=== PATIENT | female | born 1950 | race Caucasian/White ===

== ENCOUNTER 2016-10-25 13:40 | Emergency (ER) | payer MEDICARE, BC ==
--- NOTE | 2016-10-25 13:54 | ER Document Report ---
ED Fall - General Stated Complaint: FALL/KNEE PAIN Time Seen by Provider: 10/25/16 13:53 Mode of Arrival: Medic Information source: Patient, Emergency Med Personnel TRAVEL OUTSIDE OF THE [place] IN LAST 30 DAYS: No - HPI Occurred: Just prior to arrival Context: Fell from height - 6-8 FT. UP, ON STEPLADDER Associated symptoms: Difficulty walking, Other - FERGUSON R. BACK & FLANK. denies: Lost consciousness, Dazed/confused, Difficulty breathing, Became dizzy/fainted Location of injury/pain: Back, Knee - RIGHT Quality of pain: Sharp, Throbbing Severity: Severe Prehospital interventions: Other - ICE PACK - Related data Allergies/Adverse Reactions: Iodinated Contrast- Oral and IV Dye [IV Dye, Iodine Containing] Allergy (Mild, Verified 10/25/16 13:59) Past Medical History - General Information source: Patient - Social History Smoking Status: Unknown if Ever Smoked Cigarette use (# per day): No Chew tobacco use (# tins/day): No Frequency of alcohol use: Rare Drug Abuse: None Lives with: Family Family History: Reviewed & Not Pertinent Patient has suicidal ideation: No Patient has homicidal ideation: No - Past Medical History Cardiac Medical History: Reports: None Pulmonary Medical History: Reports: Hx Pneumonia - age 30 Neurological Medical History: Reports: None Endocrine Medical History: Reports: Hx Hypothyroidism Renal/ Medical History: Reports: None Malignancy Medical History: Reports: None GI Medical History: Reports: None Musculoskeltal Medical History: Reports Hx Muscle Spasm Skin Medical History: Reports None Psychiatric Medical History: Reports: Hx Depression Past Surgical History: Reports: Hx Cholecystectomy, Hx Hysterectomy - VAG., Hx Orthopedic Surgery - neck, Hx Tonsillectomy - Immunizations Hx Diphtheria, Pertussis, Tetanus Vaccination: Yes Review of Systems - Review of Systems Constitutional: No symptoms reported EENT: No symptoms reported Cardiovascular: No symptoms reported Respiratory: No symptoms reported Gastrointestinal: No symptoms reported Genitourinary: No symptoms reported Female Genitourinary: Post menopausal Musculoskeletal: See HPI Skin: No symptoms reported Neurological/Psychological: No symptoms reported Physical Exam - Vital signs Vitals: Temp Pulse Resp BP Pulse Ox 99.8 F 90 20 142/79 H 92 10/25/16 13:55 10/25/16 13:55 10/25/16 13:55 10/25/16 13:55 10/25/16 13:55 Interpretation: Hypertensive. No: Tachycardic, Tachypneic - General General appearance: Appears well, Alert In distress: None - HEENT Head: Normocephalic Eyes: Normal Conjunctiva: Normal Ears: Normal Nasal: Normal Mouth/Lips: Normal Mucous membranes: Normal Pharynx: Normal Neck: Normal - Respiratory Respiratory status: No respiratory distress Chest status: Tender - R. 12th RIB Breath sounds: Normal - Cardiovascular Rhythm: Regular Heart sounds: Normal auscultation Murmur: No Pulses: Normal: Dorsalis pedis - EQUAL BILAT. - Abdominal Inspection: Normal Distension: No distension Bowel sounds: Hypoactive Tenderness: Nontender - Back Back: Normal, Tender - R. 12th RIB. No: Vertebra tenderness - Extremities General upper extremity: Normal inspection General lower extremity: No: Normal inspection - R. KNEE (SEE BELOW) Knee: Tender - GENERALIZED, Joint effusion, Other - SWELLING - Neurological Neuro grossly intact: Yes Cognition: Normal Orientation: AAOx4 Notes: R.L.E. SENSATION INTACT DISTAL TO INJURY. - Psychological Associated symptoms: Normal affect, Normal mood - Skin Skin Temperature: Warm Skin Moisture: Dry Skin Color: Normal Skin Turgor: Elastic Course - Vital Signs Vital signs: Temp Pulse Resp BP Pulse Ox 99.8 F 90 20 142/79 H 92 10/25/16 13:55 10/25/16 13:55 10/25/16 13:55 10/25/16 13:55 10/25/16 13:55 - Laboratory Result Diagrams: 10/25/16 14:15 10/25/16 14:15 Laboratory results interpreted by me: 10/25/16 14:15 Est GFR (Non-Af Amer) 55 L Discharge - Discharge Clinical Impression: Fall from ladder Qualifiers: Encounter type: initial encounter Qualified Code(s): W11.XXXA - Fall on and from ladder, initial encounter Tibial plateau fracture, right Qualifiers: Encounter type: initial encounter Fracture type: closed Qualified Code(s): S82.141A - Displaced bicondylar fracture of right tibia, initial encounter for closed fracture Rib fracture Qualifiers: Encounter type: initial encounter Rib fracture type: single rib Fracture type: closed Laterality: right Qualified Code(s): S22.31XA - Fracture of one rib, right side, initial encounter for closed fracture Condition: Stable Disposition: HOME, SELF-CARE Instructions: Fracture (awaiting reduction) ([facility]), Rib Injuries and Fractures ( [facility]), Ice & Elevation ([facility]), Knee Immobilizing Splint ([facility]), Oral Narcotic Medication ([facility]) Additional Instructions: USE CRUTCHES, NO WEIGHT BEARING ON RIGHT LEG. KEEP LEG ELEVATED MUCH POSSIBLE. FOLLOW UP THURSDAY WITH DR. WATSON, CALL OFFICE AFTER 8 AM FOR TIME. RETURN TO E.R. IF PROBLEMS, ANY TIME. Prescriptions: Hydromorphone HCl [Dilaudid 2 Mg Tablet] 2 mg PO Q4HP PRN #12 tablet PRN Reason: For Pain Referrals: HARRY PAINTER MD [ACTIVE STAFF] - Follow up as needed
[2016-10-25 14:23] LABS: ABSOLUTE BASOPHILS # (AUTO) 0.1 10^3/uL (0.0-0.2); ABSOLUTE EOSINOPHILS # (AUTO) 0.3 10^3/uL (0.0-0.6); ABSOLUTE MONOCYTES (AUTO) 0.6 10^3/uL (0.1-1.4); ABSOLUTE NEUT (AUTO) 5.6 10^3/uL (1.7-8.2); BASOPHILS % (AUTO) 0.6 % (0-2); EOSINOPHILS % (AUTO) 3.1 % (0-6); HEMATOCRIT 41.7 % (36.0-47.0); HEMOGLOBIN 13.9 g/dL (12.0-15.5); LYMPHOCYTES % (AUTO) 23.5 % (13-45); MEAN CORPUSCULAR HEMOGLOBIN 28.8 pg (27.0-33.4); MEAN CORPUSCULAR HGB CONC 33.3 g/dL (32.0-36.0); MEAN CORPUSCULAR VOLUME 87 fl (80-97); MONOCYTES % (AUTO) 6.8 % (3-13); RED BLOOD COUNT 4.82 10^6/uL (3.72-5.28); WHITE BLOOD COUNT 8.5 10^3/uL (4.0-10.5)
[2016-10-25] MEDS ORDERED: HYDROMORPHONE HCL INJ/PF 2 MG/ML AMPULE IV ONE (14:32)
[2016-10-25 14:55] LABS: ALANINE AMINOTRANSFERASE 31 U/L (9-52); ALBUMIN 4.5 g/dL (3.5-5.0); ALKALINE PHOSPHATASE 67 U/L (38-126); ANION GAP 12 (5-19); ASPARTATE AMINO TRANSFERASE 25 U/L (14-36); BILIRUBIN,DIRECT 0.3 mg/dL (0.0-0.4); BILIRUBIN,TOTAL 0.5 mg/dL (0.2-1.3); BLOOD UREA NITROGEN 15 mg/dL (7-20); CARBON DIOXIDE 28 mmol/L (22-30); CHLORIDE 103 mmol/L (98-107); GLUCOSE 106 mg/dL (75-110); POTASSIUM 4.9 mmol/L (3.6-5.0); SODIUM 142.8 mmol/L (137-145); TOTAL PROTEIN 7.6 g/dL (6.3-8.2)
--- NOTE | 2016-10-25 15:02 | RADIOLOGY REPORT (SQ) ---
EXAM DESCRIPTION: CT CHEST WITHOUT COMPLETED DATE/TIME: 10/25/2016 2:38 pm REASON FOR STUDY: TRAUMA, PAIN LEFT CHEST FLANK COMPARISON: None. TECHNIQUE: CT scan performed of the chest without intravenous contrast. Images reviewed with lung, soft tissue and bone windows. Reconstructed coronal and sagittal MPR images reviewed. All images st ored on PACS. All CT scanners at this facility use dose modulation, iterative reconstruction, and/or weight based d osing when appropriate to reduce radiation dose to as low as reasonably achievable (ALARA). [facility]: Dose Right [facility]: CareDose [facility]: Dose Right [facility]: Teradose 4D [facility]: [employer] RADIATION DOSE: 9.16 mGy. LIMITATIONS: No technical limitations. FINDINGS: LUNGS AND PLEURA: No masses, infiltrates, pneumothorax. No pleural effusions, calcificati ons. HILAR AND MEDIASTINAL STRUCTURES: No identified masses or abnormal nodes. No obvious aneurysm. HEART AND VASCULAR STRUCTURES: No aneurysm. No pericardial effusion. UPPER ABDOMEN: No significant findings. Limited exam. THYROID AND OTHER SOFT TISSUES: No masses. No adenopathy. BONES: No significant finding. HARDWARE: None in the chest. OTHER: No other significant findings. IMPRESSION: NO SIGNIFICANT FINDING ON NON-CONTRASTED CHEST CT. No identified fractures. TECHNICAL DOCUMENTATION: JOB ID: [id number] Quality ID # [id number]: Final reports with documentation of one or more dose reduction techniques (e.g., Au tomated exposure control, adjustment of the mA and/or kV according to patient size, use of iterative reconstruction technique) 2010 [employer]- All Rights Reserved
--- NOTE | 2016-10-25 15:03 | RADIOLOGY REPORT (SQ) ---
EXAM DESCRIPTION: KNEE RIGHT 2 VIEWS COMPLETED DATE/TIME: 10/25/2016 2:41 pm REASON FOR STUDY: TRAUMA / PAIN COMPARISON: None. NUMBER OF VIEWS: Two views. TECHNIQUE: AP and lateral radiographic images acquired of the right knee. LIMITATIONS: None. FINDINGS: MINERALIZATION: Osteopenia. BONES: Comminuted proximal tibial fracture with intra-articular extension. Fractures through the med ial and lateral tibial plateau is. JOINT: Large joint effusion with fluid fluid level. SOFT TISSUES: No soft tissue swelling. No radio-opaque foreign body. OTHER: No other significant finding. IMPRESSION: Comminuted fractures of the proximal tibia with intra-articular extension. TECHNICAL DOCUMENTATION: JOB ID: [id number] [employer]- All Rights Reserved
--- NOTE | 2016-10-25 15:10 | RADIOLOGY REPORT (SQ) ---
EXAM DESCRIPTION: CT RT LOWER EXTREMITY WITHOUT COMPLETED DATE/TIME: 10/25/2016 2:44 pm REASON FOR STUDY: KNEE TRAUMA COMPARISON: Plain radiograph TECHNIQUE: Axial imaging performed through the right knee with reformatted coronal and sagittal imag ing windowed for bone and soft tissues. Images saved to PACS. 3D IMAGING: Were 3D images as MIP, SSD, or volume rendering performed at the work station? No All CT scanners at this facility use dose modulation, iterative reconstruction, and/or weight based d osing when appropriate to reduce radiation dose to as low as reasonably achievable (ALARA). [facility]: Dose Right [facility]: CareDose [facility]: Dose Right [facility]: Teradose 4D [facility]: [employer] LIMITATIONS: None. RADIATION DOSE: 4.12 mGy. FINDINGS: SOFT TISSUES: Large joint effusion with fat fluid level. BONES: Badly comminuted proximal tibial fracture. There is a vertical oblique fracture from the medi al tibia to the tibial spine. There is depression of the tibial spine and the lateral tibial plateau 6 mm. Comminution. 3 very small intra-articular loose bodies. Lateral subluxation of the lateral tibial plateau with respect to the lateral femur. Patella and femur are intact. MINERALIZATION: Normal. OTHER: No other significant finding. IMPRESSION: Badly comminuted proximal tibial fracture with fractures into the tibial spine and later al tibial plateau. Depression of the tibial spine and lateral tibial plateau 6 mm. 3 very small intra-articular loose bodies. Lateral subluxation of the tibial plateau with respect to the lateral femur. Fat fluid level in the joint. TECHNICAL DOCUMENTATION: JOB ID: [id number] Quality ID # [id number]: Final reports with documentation of one or more dose reduction techniques (e.g., Au tomated exposure control, adjustment of the mA and/or kV according to patient size, use of iterative reconstruction technique) 2010 [employer] All Rights Reserved
[2016-10-25 15:51] VITALS: BP 141/64
== END 2016-10-25 15:49 | disposition home or self-care (01) ==
LOC: ER 13:40
DX: S82.141A Displaced bicondylar fracture of right tibia, initial encounter for closed fracture (principal); S22.31XA Fracture of one rib, right side, initial encounter for closed fracture; M25.561 Pain in right knee; M54.9 Dorsalgia, unspecified; R10.9 Unspecified abdominal pain; W11.XXXA Fall on and from ladder, initial encounter
CPT/HCPCS: 99284; 96374; 36415; 85025; 80053; 73560; 71250; 73700; L1830; J1170

== ENCOUNTER 2016-10-30 16:45 | Inpatient (IN) | payer MEDICARE, BC, OTHER ==
[2016-10-28 12:34] LABS: ABSOLUTE EOSINOPHILS # (AUTO) 0.1 10^3/uL (0.0-0.6); ABSOLUTE LYMPHOCYTES (AUTO) 1.6 10^3/uL (0.5-4.7); ABSOLUTE MONOCYTES (AUTO) 0.8 10^3/uL (0.1-1.4); ABSOLUTE NEUT (AUTO) 7.3 10^3/uL (1.7-8.2); BASOPHILS % (AUTO) 0.3 % (0-2); EOSINOPHILS % (AUTO) 1.5 % (0-6); HEMATOCRIT 39.4 % (36.0-47.0); HGB HCT DIFFERENCE -0.4; LYMPHOCYTES % (AUTO) 16.3 % (13-45); MEAN CORPUSCULAR HEMOGLOBIN 28.9 pg (27.0-33.4); MEAN CORPUSCULAR HGB CONC 33.1 g/dL (32.0-36.0); MEAN CORPUSCULAR VOLUME 87 fl (80-97); MONOCYTES % (AUTO) 8.3 % (3-13); RED BLOOD COUNT 4.51 10^6/uL (3.72-5.28); RED CELL DISTRIBUTION WIDTH 12.8 % (11.5-14.0); SEGMENTED NEUTROPHILS % (AUTO) 73.6 % (42-78); WHITE BLOOD COUNT 9.9 10^3/uL (4.0-10.5)
--- NOTE | 2016-10-28 12:38 | RADIOLOGY REPORT (SQ) ---
EXAM DESCRIPTION: CHEST PA/LATERAL COMPLETED DATE/TIME: 10/28/2016 12:25 pm REASON FOR STUDY: PRE OP COMPARISON: CT chest 10/25/2016 EXAM PARAMETERS: NUMBER OF VIEWS: two views TECHNIQUE: Digital Frontal and Lateral radiographic views of the chest acquired. RADIATION DOSE: NA LIMITATIONS: none FINDINGS: LUNGS AND PLEURA: Mild bibasilar platelike atelectasis. No fluffy alveolar infiltrates worrisome for pulmonary edema or pneumonia. No pleural effusion. No pneumothorax. MEDIASTINUM AND HILAR STRUCTURES: No masses or contour abnormalities. HEART AND VASCULAR STRUCTURES: Heart normal size. No evidence for failure. BONES: No acute findings. HARDWARE: None in the chest. OTHER: Air-fluid levels in stomach and colon under the hemidiaphragms, question ileus IMPRESSION: Bibasilar atelectasis. TECHNICAL DOCUMENTATION: JOB ID: [id number] [employer]- All Rights Reserved
[2016-10-28 13:05] LABS: ANION GAP 10 (5-19); BLOOD UREA NITROGEN 10 mg/dL (7-20); CALCIUM 9.6 mg/dL (8.4-10.2); CARBON DIOXIDE 30 mmol/L (22-30); CHLORIDE 96 mmol/L (98-107); CREATININE RESULT 0.71 mg/dL (0.52-1.25); GLUCOSE 111 mg/dL (75-110); POTASSIUM 4.5 mmol/L (3.6-5.0); SODIUM 135.9 mmol/L (137-145)
--- NOTE | 2016-10-28 23:41 | EKG REPORT ---
SEVERITY:- NORMAL ECG - SINUS RHYTHM : Confirmed by: Mike Bruno 28-Oct-2016 23:40:34
--- NOTE | 2016-10-30 11:53 | RADIOLOGY REPORT (SQ) ---
EXAM DESCRIPTION: CHEST SINGLE VIEW COMPLETED DATE/TIME: 10/30/2016 11:35 am REASON FOR STUDY: REPEAT PRE OP-ASU RM#1 COMPARISON: None. EXAM PARAMETERS: NUMBER OF VIEWS: One view. TECHNIQUE: Single frontal radiographic view of the chest acquired. RADIATION DOSE: NA LIMITATIONS: None. FINDINGS: LUNGS AND PLEURA: Basilar platelike atelectasis/ scarring noted similar to the prior study . No focal infiltrates. No pneumothorax. No significant effusion. MEDIASTINUM AND HILAR STRUCTURES: No masses. Contour normal. HEART AND VASCULAR STRUCTURES: Heart normal in size. Normal vasculature. BONES: No acute findings. HARDWARE: None in the chest. OTHER: No other significant finding. IMPRESSION: Linear bibasilar opacities, similar to prior study pre likely representing scarring or a telectasis. No focal infiltrates or pneumothorax. TECHNICAL DOCUMENTATION: JOB ID: [id number]
[~2016-10-30 16:45] MED LIST: ACETAMINOPHEN 100 ML IV ONE; ALBUTEROL SULFATE 0.083% NEB 2.5 MG/3 ML AMPUL NEB ONE; BUPIVACAINE INJ/PF LIPOSOME/PF 266 MG/20 ML SDV ONE; CEFAZOLIN 2 GM/D5W RTU 2 GM/50 ML RTUPB IV PRN; DEXAMETHASONE SOD PHOSPHATE INJ 4 MG/1 ML VIAL ONE; DIPHENHYDRAMINE HCL 50 MG/ML VIAL IV PRN; FENTANYL CITRATE INJ/PF 100 MCG/2 ML AMPUL IV PRN; FENTANYL CITRATE INJ/PF 250 MCG/5 ML AMPULE ONE; GLYCOPYRROLATE INJ 0.4 MG/2 ML VIAL ONE; HYDROMORPHONE HCL INJ/PF 2 MG/ML AMPULE ONE; IBUPROFEN INJ 800 MG/8 ML VIAL IV ONE; LACTATED RINGERS 1000 ML IV PRN; LIDOCAINE 0.5% INJ-PF (5 MG/ML) 50 ML SDV SUBCUT PRN; LIDOCAINE 2% INJ-PF (20 MG/ML) 10 ML AMPUL ONE; MEPERIDINE HCL/PF INJ 25 MG/1 ML DISP.SYRIN IV PRN; MIDAZOLAM 2 MG/2 ML INJ ONE; MORPHINE SULFATE 10 MG/ML INJ INJ ONE; MORPHINE SULFATE 10 MG/ML INJ IV PRN; MORPHINE SULFATE 10 MG/ML INJ ONE; NEOSTIGMINE METHYLSULFATE 10 MG/10 ML VIAL ONE; ONDANSETRON HCL INJ/PF 4 MG/2 ML SDV ONE; PROMETHAZINE HCL INJ 25 MG/1 ML VIAL IV PRN; PROPOFOL INJ 200 MG/20 ML VIAL IV ONE; RINGERS SOLUTION,LACTATED 1,000 ML IV ONE; RINGERS SOLUTION,LACTATED 1,000 ML IV PRN; SUCCINYLCHOLINE CHLORIDE INJ 200 MG/10 ML VIAL ONE; THROMBIN (BOVINE) 5000 UNIT EPITAXIS KIT ONE; THROMBIN (BOVINE) TOPICAL 20000 UNIT VIAL ONE; VECURONIUM BROMIDE INJ 10 MG VIAL IV ONE
--- NOTE | 2016-10-30 17:04 | RADIOLOGY REPORT (SQ) ---
EXAM DESCRIPTION: TIBIA FIBULA RIGHT; NO CHG FLUORO COMPLETED DATE/TIME: 10/30/2016 4:48 pm REASON FOR STUDY: ORIF RT TIBIAL PLATEAU S82.141A DISPLACED BICONDYLAR FRACTURE OF RIGHT TIBIA, INI T COMPARISON: None. FLUOROSCOPY TIME: 2.2 minutes 8 images saved to PACS. TECHNIQUE: Intra-operative images acquired during surgical procedure to evaluate progress. NUMBER OF IMAGES: 8 LIMITATIONS: None. FINDINGS: 8 spot fluoroscopic images from the row open reduction internal fixation of proximal tibia l fracture. Image demonstrates placement of a lateral plate with multiple screws. No in tibial plat eau fracture is seen but not well defined on these studies. No fracture involving the proximal fibul a also noted. Please see operative report full details regarding procedure. IMPRESSION: IMAGE(S) OBTAINED DURING PROCEDURE. COMMENT: Quality ID 145: Final reports for procedures using fluoroscopy that document radiation exp osure indices, or exposure time and number of fluorographic images (if radiation exposure indices are not available) Please consult full operative report of the attending physician for description of the procedure. TECHNICAL DOCUMENTATION: JOB ID: [id number] [employer]- All Rights Reserved
[2016-10-30] MEDS ORDERED: OXYCODONE-ACETAMINOPHEN 5-325 MG TABLET PO PRN (17:32)
[2016-10-30] MEDS ORDERED: MORPHINE SULFATE 10 MG/ML INJ IV PRN (17:33)
[2016-10-30] MEDS ORDERED: ONDANSETRON HCL INJ/PF 4 MG/2 ML SDV IV PRN ×2 (17:34→21:35)
[2016-10-30] MEDS: FENTANYL CITRATE INJ/PF 100 MCG/2 ML AMPUL ONE ×2 (17:42→17:50)
[2016-10-30] MEDS ORDERED: RINGERS SOLUTION,LACTATED 1,000 ML IV PRN ×2 (18:40→21:35)
[2016-10-30] MEDS ORDERED: MORPHINE SULFATE 10 MG/ML INJ ONE (20:58)
[2016-10-30] MEDS: CEFAZOLIN 2 GM/D5W RTU 2 GM/50 ML RTUPB IV SCH (21:45)
[2016-10-30] MEDS ORDERED: CEFAZOLIN 2 GM/D5W RTU 2 GM/50 ML RTUPB IV SCH (22:00)
[2016-10-30] MEDS: MORPHINE SULFATE 10 MG/ML INJ IV PRN (23:37)
[2016-10-31] MEDS: OXYCODONE-ACETAMINOPHEN 5-325 MG TABLET PO PRN ×4 (01:02→20:58)
[2016-10-31] MEDS: MORPHINE SULFATE 10 MG/ML INJ IV PRN ×3 (03:58→12:36)
[2016-10-31] MEDS: CEFAZOLIN 2 GM/D5W RTU 2 GM/50 ML RTUPB IV SCH (05:08)
[2016-10-31] MEDS ORDERED: NA PHOS,M-B/NA PHOS,DI-BA (ADULT) 133 ML ENEMA PR PRN (09:20)
[2016-10-31] MEDS: DOCUSATE SODIUM 100 MG CAPSULE PO SCH ×2 (09:41→17:31)
[2016-10-31] MEDS: LEVOTHYROXINE SODIUM 0.112 MG TABLET PO SCH (09:41)
[2016-10-31] MEDS: KETOROLAC TROMETHAMINE INJ/PF 30 MG/1 ML SDV IV SCH ×2 (09:42→17:31)
[2016-10-31] MEDS: SENNOSIDES/DOCUSATE 8.6-50 MG 1 EACH TABLET PO SCH (09:42)
[2016-10-31] MEDS: POLYETHYLENE GLYCOL 3350 POWDER 17 GM/1 PACKET PO SCH (09:43)
[2016-10-31] MEDS: RIVAROXABAN 10 MG TABLET PO SCH (09:43)
[2016-10-31] MEDS ORDERED: RIVAROXABAN 10 MG TABLET PO SCH (10:00)
--- NOTE | 2016-10-31 13:41 | Operative Report ---
Operative Report DATE OF SURGERY: 10/30/16 PREOPERATIVE DIAGNOSIS: Right bicondylar tibial plateau fracture POSTOPERATIVE DIAGNOSIS: Same OPERATION: ORIF of right tibial plateau SURGEON: HARRY TILLEY ANESTHESIA: GA TISSUE REMOVED OR ALTERED: None COMPLICATIONS: None ESTIMATED BLOOD LOSS: 50 mL INTRAOPERATIVE FINDINGS: As above PROCEDURE: 2 g of Ancef were given to the patient in the preoperative holding area. Patient was brought to the operating room where she was successfully induced and intubated in supine position. A bump was placed under her right buttocks. Thigh tourniquet was applied to the right lower extremity. Right lower extremity was prepped and draped in a normal sterile surgical fashion. Timeout was done identifying the right knee as the correct site. Esmarch was used to exsanguinate the extremity and tourniquet was inflated at 300 mmHg. Erie was placed on the knee in a hockey stick incision was done to expose the lateral plateau. The tibialis anterior was then reflected off of the tibial shaft and lateral tibial plateau. I can identify the nondisplaced fracture of the lateral plateau. I was not able to visualize the joint very well from a lateral incision so a medial incision was done. Dissection was taken down to the MCL and then a longitudinal split of MCL was done exposing the medial meniscus. I was unable to visualize the joint space but was able to visualize the posterior medial fragment which I was able to reduce successfully with a ball hook and then periarticular clamps. C-arm pictures were taken confirming reduction and therefore placed a couple pins to hold it in place provisionally. I noted on the lateral side I had to do a window that allowed me to use a bone tamp to prop up the depressed portion of the joint. With the new defect ended up using Hydrocet from [employer] for feeling of the metaphyseal gap. I applied the lateral plate and placed my pins across bicondylar fracture. I also secured the plate distally with a cortical screw in the shaft. My first screw proximally in the condyles was placed in a compression fashion. The other 2 were placed in a locking fashion. I placed to kickstand and then filled in the final remaining holes in the shaft. C-arm pictures was used to guide my drill and check my length. Also satisfied with the reduction and fixation I proceeded to close bilateral wound reapproximating the tibialis anterior and fascial tissue over the plate. I used 0 Vicryl and 2-0 Vicryl to close the subcutaneous tissue and dermis. [place] for skin. Tourniquet was let down at 131 minutes and on the medial side I had a small active issues from a vein therefore had to pack the wound. After packing for 5 minutes and applying FloSeal there was no active bleeding. I reapproximated the MCL side-to -side stitches using Vicryl. I approximated the subcutaneous tissue with 0 Vicryl and 2-0 Vicryl for the dermis. Lita was used for the skin. Xeroform 4 x 4 dressing was applied to the extremity I covered it with ABD pads and soft roll and overwrapped with an Mike bandage. Drapes were removed and patient was extubated and sent to PACU in stable condition. Of note before being sent back to PACU I was able to palpate a dorsalis pedis pulse and a posterior tibial pulse. Patient had good capillary refill.
--- NOTE | 2016-10-31 13:44 | PDOC PROGRESS REPORT ---
Subjective Progress Note for:: 10/31/16 Subjective:: Patient complaining of increased pain. Denies any numbness or tingling. Patient also complaining of constipation. Physical Exam Vital Signs: Temp Pulse Resp BP Pulse Ox 36.6 C 97 17 124/58 L 97 10/31/16 07:19 10/31/16 07:19 10/31/16 07:19 10/31/16 07:19 10/31/16 08:06 Intake & Output 10/30/16 10/31/16 11/01/16 06:59 06:59 06:59 Intake Total 3700 Output Total 752 Balance 2948 Weight 82.1 kg General appearance: PRESENT: no acute distress Respiratory exam: PRESENT: symmetrical, unlabored Neurological exam: PRESENT: awake, oriented to person, oriented to place, oriented to time Adult Front & Back Image: 1 - Knee immobilizer intact. Dressing is dry clean and intact. Calves are swollen but soft and depressible with no increase out of proportional pain. Has good sensation to light touch distally. Palpable +2 dorsalis pedis pulse. Good capillary refill. Results Laboratory Results: 10/28/16 11:21 10/28/16 11:21 Impressions: Chest X-Ray 10/30/16 00:00 IMPRESSION: Linear bibasilar opacities, similar to prior study pre likely representing scarring or atelectasis. No focal infiltrates or pneumothorax. Fluoroscopy 10/30/16 00:00 IMPRESSION: IMAGE(S) OBTAINED DURING PROCEDURE. Tibia/Fibula X-Ray 10/30/16 00:00 IMPRESSION: IMAGE(S) OBTAINED DURING PROCEDURE. Assessment & Plan - Diagnosis (1) Tibial plateau fracture, right Qualifiers: Encounter type: initial encounter Fracture type: closed Qualified Code(s): S82.141A - Displaced bicondylar fracture of right tibia, initial encounter for closed fracture Is this a current diagnosis for this admission?: YesPlan: Patient is postop day 1 from ORIF of right tibial plateau fracture. I would like to elevate the extremity higher. Continue knee immobilizer. Continue physical therapy. I agreed to prescribe a rolling walker and commode as recommended by therapy. Continue Xarelto for DVT prophylaxis. Patient has been started on Colace, senna and will be given an enema if she is unable to pass a bowel movement. Patient also was given an increase in dosage on her Percocet from 5-7.5. We will reassess her pain level and change her dressing tomorrow.
[2016-11-01] MEDS: KETOROLAC TROMETHAMINE INJ/PF 30 MG/1 ML SDV IV SCH ×2 (02:04→09:01)
[2016-11-01] MEDS: OXYCODONE-ACETAMINOPHEN 5-325 MG TABLET PO PRN ×2 (03:16→13:13)
[2016-11-01] MEDS: POLYETHYLENE GLYCOL 3350 POWDER 17 GM/1 PACKET PO SCH (09:02)
[2016-11-01] MEDS: LEVOTHYROXINE SODIUM 0.112 MG TABLET PO SCH (09:03)
[2016-11-01] MEDS: SENNOSIDES/DOCUSATE 8.6-50 MG 1 EACH TABLET PO SCH (09:03)
[2016-11-01] MEDS: DOCUSATE SODIUM 100 MG CAPSULE PO SCH (09:03)
[2016-11-01] MEDS: RIVAROXABAN 10 MG TABLET PO SCH (09:03)
--- NOTE | 2016-11-01 09:38 | PDOC DISCHARGE SUMMARY ---
General - Admit/Disc Date/PCP Admission Date/Primary Care Provider: BEN CASTRO NP Discharge Date: 11/01/16 - Discharge Diagnosis (1) Tibial plateau fracture, right Is this a current diagnosis for this admission?: Yes - Additional Information Resuscitation Status: Full Code Discharge Diet: As Tolerated Discharge Activity: No Driving, Keep Legs Elevated Home Medications: Hydrocodone/Acetaminophen [Hydrocodon-Acetaminophn 10-300] 1 each PO ASDIR PRN 10/28/16 Levothyroxine Sodium [Synthroid 0.112 mg Tablet] 112 mcg PO DAILY 10/28/16 History of Present Illness Patient complains of: Right leg pain History of Present Illness: GANESH LIMA is a 66 year old female who suffered a right bicondylar tibial plateau fracture After falling off of a ladder while working on the roof of her house. She denies any numbness or tingling or paresthesias. She complains of swelling and pain and inability to weight-bear. she was seen in the ER and told to follow-up in the office where necessary to proceed with open reduction internal fixation of her right tibial plateau fracture. Patient on underwent ORIF and admitted for pain control. Hospital Course Hospital Course: Patient on 10/30/2016 underwent open reduction internal fixation of her right tibial plateau fracture. Patient stated total 2 nights and will be discharged on 11/01/2016. Her pain was inadequately controlled on the postop day 1 where we had to increase her Percocet and add Toradol to the regimen. After doing this her pain was adequately controlled and will be discharged today. Her vital signs have been stable since her admission and had soft compartments and full neurovascular status. She does have swelling of the expected and pain. She is instructed to wear knee immobilizer and be nonweightbearing. She is instructed to follow-up in the office in 2 weeks for wound check. She was told to change her dressing and 5-7 days from the surgery. At that point she can shower but no bathing or soaking. Patient will be discharged on Percocet, Colace, Xarelto. Physical Exam Vital Signs: Temp Pulse Resp BP Pulse Ox 37.2 C 82 20 117/49 L 97 11/01/16 08:18 11/01/16 08:18 11/01/16 08:18 11/01/16 08:18 11/01/16 08:18 Intake & Output 10/31/16 11/01/16 11/02/16 06:59 06:59 06:59 Intake Total 3700 2243 Output Total 752 Balance 2948 2243 Weight 82.1 kg 84.6 kg General appearance: PRESENT: no acute distress Eye exam: PRESENT: EOMI. ABSENT: nystagmus, periorbital swelling Respiratory exam: PRESENT: symmetrical, unlabored Pulses: PRESENT: normal dorsalis pedis pul Extremities exam: ABSENT: full ROM, calf tenderness Neurological exam: PRESENT: alert, awake, oriented to person, oriented to place , oriented to time Skin exam: PRESENT: normal color. ABSENT: mottled, skin tears Adult Front & Back Image: 1 - Name immobilizer and intact and in proper place. This was opened and the dressing was dry clean and intact. No ecchymosis seen around the dressing. She has swelling as expected but soft depressible compartments. Skin is warm to touch with us to discuss pedis pulse. Able to flex and extend the ankle and toes with good sensation to light touch distally Results Laboratory Results: 10/28/16 11:21 10/28/16 11:21 Impressions: Chest X-Ray 10/30/16 00:00 IMPRESSION: Linear bibasilar opacities, similar to prior study pre likely representing scarring or atelectasis. No focal infiltrates or pneumothorax. Fluoroscopy 10/30/16 00:00 IMPRESSION: IMAGE(S) OBTAINED DURING PROCEDURE. Tibia/Fibula X-Ray 10/30/16 00:00 IMPRESSION: IMAGE(S) OBTAINED DURING PROCEDURE. Plan Discharge Plan: Patient is being discharged today on 11/01/2016 postop day 2 from open reduction internal fixation of her right tibial plateau fracture. She is instructed to be nonweightbearing with crutches and a knee immobilizer. She will be discharged on Percocet, Colace, Xarelto. Patient will follow-up in 10-14 days in the office. Instructed to keep the extremity iced and elevated. Instructed to come back sooner if she develops fevers chills shortness of breath or increased pain out of proportion.
[2016-11-01 13:04] VITALS: BP 109/49
== END 2016-11-01 16:02 | disposition home or self-care (01) | DRG 494 ==
LOC: 4N 16:45 → SC 16:45 → UNDOADMOB 16:45 → INTOOBSV 16:45 → 4N 16:45 → INOR 18:39 → 4N 18:39 → SC 21:00 → 4N 21:01 → SC 21:01 → 4N 21:02 → SC 11-01 16:02 → 4N 11-01 16:02
PROVIDERS: ADMIT Orthopaedic Surgery; ATTEND Orthopaedic Surgery
PROC: 0QSG04Z Reposition Right Tibia with Internal Fixation Device, Open Approach (ICD-10-PCS; principal; 2016-10-30 13:00)
DX: S82.141A Displaced bicondylar fracture of right tibia, initial encounter for closed fracture (principal); K59.00 Constipation, unspecified; E03.9 Hypothyroidism, unspecified; W11.XXXA Fall on and from ladder, initial encounter; Z91.041 Radiographic dye allergy status; M25.562 Pain in left knee; Z79.899 Other long term (current) drug therapy; Z83.3 Family history of diabetes mellitus; Z90.710 Acquired absence of both cervix and uterus; Z90.79 Acquired absence of other genital organ(s)
CPT/HCPCS: 01392; 36415; 71010; 71020; 80048; 85025; 93005; 93010; 94640; 94799; C1713; C9290; G8978-GP; G8979-GP; G8987-GO; G8988-GO; J0131; J0330; J0690; J1100; J1170; J1741; J1885; J2250; J2270; J2405; J2704; J3010; J3490; L1830

== ENCOUNTER → 2018-03-16 | Day surgery (SDC) | payer MEDICARE, BC ==
[~2018-03-16] MED LIST changes: -ACETAMINOPHEN 100 ML IV ONE; -ALBUTEROL SULFATE 0.083% NEB 2.5 MG/3 ML AMPUL NEB ONE; +BUPIVACAINE HCL 0.5 % INJ/PF 30 ML SDV ONE; -BUPIVACAINE INJ/PF LIPOSOME/PF 266 MG/20 ML SDV ONE; -CEFAZOLIN 2 GM/D5W RTU 2 GM/50 ML RTUPB IV PRN; -DEXAMETHASONE SOD PHOSPHATE INJ 4 MG/1 ML VIAL ONE; -DIPHENHYDRAMINE HCL 50 MG/ML VIAL IV PRN; -FENTANYL CITRATE INJ/PF 100 MCG/2 ML AMPUL IV PRN; -FENTANYL CITRATE INJ/PF 250 MCG/5 ML AMPULE ONE; -GLYCOPYRROLATE INJ 0.4 MG/2 ML VIAL ONE; -HYDROMORPHONE HCL INJ/PF 2 MG/ML AMPULE ONE; -IBUPROFEN INJ 800 MG/8 ML VIAL IV ONE; +KETOROLAC TROMETHAMINE INJ/PF 30 MG/1 ML SDV IM ONE; -LACTATED RINGERS 1000 ML IV PRN; -LIDOCAINE 0.5% INJ-PF (5 MG/ML) 50 ML SDV SUBCUT PRN; +LIDOCAINE 1% INJ-PF (10 MG/ML) 30 ML SDV ONE; +LIDOCAINE 2% INJ (20 MG/ML) 20 ML MDV ONE; -LIDOCAINE 2% INJ-PF (20 MG/ML) 10 ML AMPUL ONE; -MEPERIDINE HCL/PF INJ 25 MG/1 ML DISP.SYRIN IV PRN; +METHYLPREDNISOLONE ACETATE INJ 40 MG/1 ML ML ONE; -MIDAZOLAM 2 MG/2 ML INJ ONE; -MORPHINE SULFATE 10 MG/ML INJ INJ ONE; -MORPHINE SULFATE 10 MG/ML INJ IV PRN; -MORPHINE SULFATE 10 MG/ML INJ ONE; -NEOSTIGMINE METHYLSULFATE 10 MG/10 ML VIAL ONE; -ONDANSETRON HCL INJ/PF 4 MG/2 ML SDV ONE; -PROMETHAZINE HCL INJ 25 MG/1 ML VIAL IV PRN; -PROPOFOL INJ 200 MG/20 ML VIAL IV ONE; -RINGERS SOLUTION,LACTATED 1,000 ML IV ONE; -RINGERS SOLUTION,LACTATED 1,000 ML IV PRN; -SUCCINYLCHOLINE CHLORIDE INJ 200 MG/10 ML VIAL ONE; -THROMBIN (BOVINE) 5000 UNIT EPITAXIS KIT ONE; -THROMBIN (BOVINE) TOPICAL 20000 UNIT VIAL ONE; -VECURONIUM BROMIDE INJ 10 MG VIAL IV ONE
--- NOTE | 2018-03-16 13:10 | Operative Report ---
PREOPERATIVE DIAGNOSIS: Lumbar Spondylosis POSTOPERATIVE DIAGNOSIS: Lumbar Spondylosis PROCEDURE: Radiofrequency Ablation of medial branches - LT L2 L3 L4 Dorsal primary ramus of L5. DATE OF PROCEDURE: March 16, 2018 ANESTHESIA: Local COMPLICATIONS: None CONSENT: A full description of the procedure was provided including benefits as well as possible complications. All questions were answered and informed consent was given and signed. ASA guidelines for fasting were verified prior to sedation. PROCEDURE IN DETAIL The patient was brought into the fluoroscopy suite and positioned into the prone position on the fluoroscopy table and allowed to adjust to a position of comfort. A grounding pad was placed on the left thigh. The lumbar region was widely prepped with a chloraprep solution, allowed to air dry and draped in standard sterile surgical fashion. Local anesthesia was provided by 1 mL of 1 % lidocaine delivered with a 25 g needle. A 17g 100mm radiofrequency introducer needle was placed to the planned anatomic targets guided with intermittent fluoroscopy with a perpendicular approach to terminally place at the junction of the superior articular process and the transverse process of the left L3 L4 L5 and the base of the sacral ala on the left for the L5 medial branch nerve. The stylets were removed and radiofrequency probes with a 4mm active tip were then inserted. Needle tip position of the probes was verified in the AP, oblique, and lateral views. At each site, the medial branch nerve was stimulated at 2 Hz to a maximum 1-2 volts determined to finalize safe needle and electrode placement. The patient was awake and responsive during this portion of the procedure. Each target was anesthetized with 1-2 mL of 2 % lidocaine for anesthesia for lesioning and then each target was lesioned at 80 degrees Celsius for 2 minutes and 30 seconds. Tissue impedences were noted to be between 250 and 500 Ohms. Electrodes were removed, and the sites were each infiltrated with 1mL of a mixture of 0.25% bupivacane and 30mg Ketorolac. [place]ail were then removed and bandages placed over the needle placement sites, the patient then returned to the supine position on a stretcher and transported to the recovery room without hemodynamic , neurologic, or allergic reactions. Fluoroscopic images were printed for hard copy recording and digitally archived. POST PROCEDURE EVALUATION: The patient was comfortable in the recovery room. The patient is aware that pain may worsen before remitting and 4 - 6 weeks may be required prior to the onset of pain relief. IMPRESSION: 1. Technically successful left L2 L3 L4 L5 medial branch radiofrequency neurotomy for denervation on the left without complication. 2. RTC in 2 weeks. 3. Estimated Blood Loss: None
== END ==
LOC: RAD 08:03
PROVIDERS: ATTEND Pain Medicine Interventional Pain Medicine
DX: M47.817 Spondylosis without myelopathy or radiculopathy, lumbosacral region (principal)
CPT/HCPCS: 64636; 64635; J3490 ×3; J1020; J1885

== ENCOUNTER → 2018-04-13 | Day surgery (SDC) | payer MEDICARE, BC ==
[~2018-04-13] MED LIST changes: -KETOROLAC TROMETHAMINE INJ/PF 30 MG/1 ML SDV IM ONE; +KETOROLAC TROMETHAMINE INJ/PF 30 MG/1 ML SDV IM PRN; -LIDOCAINE 2% INJ (20 MG/ML) 20 ML MDV ONE
== END ==
LOC: RAD 08:01
PROVIDERS: ATTEND Pain Medicine Interventional Pain Medicine
DX: M47.817 Spondylosis without myelopathy or radiculopathy, lumbosacral region (principal)
CPT/HCPCS: 64636; 64635; J3490 ×2; J1020; J1885

== ENCOUNTER → 2019-01-11 | Day surgery (SDC) | payer MEDICARE, BC ==
[~2019-01-11] MED LIST changes: +LIDOCAINE 2% INJ (20 MG/ML) 20 ML MDV ONE
--- NOTE | 2019-01-11 12:21 | Operative Report ---
KNEE RADIOFREQUENCY PROCEDURE: RIGHT 1. Superolateral genicular branch from the vastus lateralis 2. Superomedial genicular branch from the vastus medialis 3. Inferomedial genicular branch from the saphenous nerve 4. Medial retinacular branch from the vastus intermedius DATE OF PROCEDURE: January 11, 2019 ANESTHESIA: Local COMPLICATIONS: None PROCEDURE IN DETAIL: Hx/PE/meds/allergies/applicable labs reviewed. No changes and no contraindications were found. Full description of the procedure was provided including benefits as well as possible complications including t ransient increased pain, stomach irritation, mood alteration, transient weakness or parasthesias as well as more serious nerve injury, bleeding, infection or allergic reaction. Informed consent was obtained and documented. The patient was brought to the procedure room and placed on the exam table in a comfortable supine position. The place for needle placement was obtained by manual palpation with radiographic confirmation. The sterile field was prepared by chloroprep and sterile drapes. Local anesthesia superficial and deep was provided by local infiltration of 1% lidocaine. A 17g 50mm radiofrequency introducer needle with a 4 mm active tip was placed overlying the Right knee joint and using fluoroscopic guidance the needle was advanced to a bony endpoint on the superiolateral portion of the femoral condyle of the Right knee. A second needle was advanced to a bony endpoint on the superiomedial portion of the femoral condyle. A third needle was then placed over the inferiomedial portion of the tibial condyle until a bony endpoint was met. A fourth needle placed midline of the femur approximately 2cm superior to the upper border of the patella. Attempted aspiration yielded no blood. Lateral x-ray views showed all the needles at 50% depth of the femur and tibia. Motor stimulation was tested at 2.0 volts with no leg movement. Images were saved in AP and lateral. A mixture consisting of 2% lidocaine was slowly injected. Then a radiofrequency ablation of each of the geniculate nerves were done at 80 degrees Celsius for 2 minutes and 30 seconds each. The electrodes were withdrawn and each site was infiltrated with a solution containing 0.25% bupivacaine with 30 mg of ketorolac. Then needles were withdrawn. The patient tolerated the procedure well. After observation the patient was discharged with instructions and follow up. They were also provided contact information to call regarding any concerning symptoms or questions. IMPRESSION: 1. Successful geniculate knee radiofrequency ablation was performed. 2. The patient was given prescription of oxycodone for postprocedural pain. 3. RTC in 2 week(s).
== END ==
LOC: RAD 10:53
PROVIDERS: ATTEND Pain Medicine Interventional Pain Medicine
DX: M25.561 Pain in right knee (principal)
CPT/HCPCS: 64640 ×3; J3490 ×3; J1885; J1030

== ENCOUNTER → 2019-09-13 | Day surgery (SDC) | payer MEDICARE, BC ==
[~2019-09-13] MED LIST changes: -METHYLPREDNISOLONE ACETATE INJ 40 MG/1 ML ML ONE
== END ==
LOC: RAD 08:03
PROVIDERS: ATTEND Pain Medicine Interventional Pain Medicine
DX: M25.561 Pain in right knee (principal)
CPT/HCPCS: 64624; J3490 ×3; J1885

== ENCOUNTER → 2019-11-15 | Day surgery (SDC) | payer MEDICARE, BC ==
[~2019-11-15] MED LIST changes: -LIDOCAINE 1% INJ-PF (10 MG/ML) 30 ML SDV ONE; +METHYLPREDNISOLONE ACETATE INJ 40 MG/1 ML ML ONE
--- NOTE | 2019-11-15 12:25 | Operative Report ---
PREOPERATIVE DIAGNOSIS: Lumbar Spondylosis POSTOPERATIVE DIAGNOSIS: Lumbar Spondylosis PROCEDURE: Radiofrequency Ablation of medial branches - RT L2 L3 L4 dorsal primary ramus of L5. DATE OF PROCEDURE: November 15, 2019 ANESTHESIA: Local COMPLICATIONS: None CONSENT: A full description of the procedure was provided including benefits as well as possible complications. All questions were answered and informed consent was given and signed. ASA guidelines for fasting were verified prior to sedation. PROCEDURE IN DETAIL The patient was brought into the fluoroscopy suite and positioned into the prone position on the fluoroscopy table and allowed to adjust to a position of comfort. A grounding pad was placed on the right thigh. The lumbar region was widely prepped with a chloraprep solution, allowed to air dry and draped in standard sterile surgical fashion. Local anesthesia was provided by 1 mL of 1 % lidocaine delivered with a 25 g needle. A 17g 75 mm radiofrequency introducer needle was placed to the planned anatomic targets guided with intermittent fluoroscopy with a perpendicular approach to terminally place at the junction of the superior articular process and the t ransverse process of the right L3 L4 L5 and the base of the sacral ala on the right for the L5 medial branch nerve. The stylets were removed and radiofrequency probes with a 4mm active tip were then inserted. Needle tip position of the probes was verified in the AP, oblique, and lateral views. At each site, the medial branch nerve was stimulated at 2 Hz to a maximum 1-2 volts determined to finalize safe needle and electrode placement. The patient was awake and responsive during this portion of the procedure. Each target was anesthetized with 1-2 mL of 2 % lidocaine for anesthesia for lesioning and then each target was lesioned at 80 degrees Celsius for 2 minutes and 30 seconds. Tissue impedences were noted to be between 250 and 500 Ohms. Electrodes were then removed and each site was infiltrated with 1 mL of a solution containing 0.25% bupivacaine with 30 mg of ketorolac. Meedles were then removed and bandages placed over the needle placement sites, the patient then returned to the supine position on a stretcher and transported to the recovery room without hemodynamic, neurologic, or allergic reactions. Fluoroscopic images were printed for hard copy recording and digitally archived. POST PROCEDURE EVALUATION: The patient was comfortable in the recovery room. The patient is aware that pain may worsen before remitting and 4 - 6 weeks may be required prior to the onset of pain relief. IMPRESSION: 1. Technically successful right L2 L3 L4 L5 medial branch radiofrequency neurotomy for denervation on the right without complication. 2. RTC in three weeks. 3. Estimated Blood Loss: Minimal
--- NOTE | 2019-11-15 14:07 | RADIOLOGY REPORT (SQ) ---
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 FLUOROSCOPY TIME: 1.2 minutes 5 images saved to PACS. TECHNIQUE: Intra-operative images acquired during surgical procedure to evaluate progress. NUMBER OF IMAGES: 5 LIMITATIONS: None. FINDINGS: Spinal needles overlie the soft tissues posterior to the lumbar spine . IMPRESSION: IMAGE(S) OBTAINED DURING PROCEDURE. COMMENT: Quality ID 145: Final reports for procedures using fluoroscopy that document radiation exp osure indices, or exposure time and number of fluorographic images (if radiation exposure indices are not available) Please consult full operative report of the attending physician for description of the procedure. TECHNICAL DOCUMENTATION: JOB ID: [id number] 2010 [employer]- All Rights Reserved Reading location - IP/workstation name: [email or web address]
--- NOTE | 2019-11-15 14:07 | RADIOLOGY REPORT (SQ) ---
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 FLUOROSCOPY TIME: 1.2 minutes 5 images saved to PACS. TECHNIQUE: Intra-operative images acquired during surgical procedure to evaluate progress. NUMBER OF IMAGES: 5 LIMITATIONS: None. FINDINGS: Spinal needles overlie the soft tissues posterior to the lumbar spine . IMPRESSION: IMAGE(S) OBTAINED DURING PROCEDURE. COMMENT: Quality ID 145: Final reports for procedures using fluoroscopy that document radiation exp osure indices, or exposure time and number of fluorographic images (if radiation exposure indices are not available) Please consult full operative report of the attending physician for description of the procedure. TECHNICAL DOCUMENTATION: JOB ID: [id number] 2010 [employer]- All Rights Reserved Reading location - IP/workstation name: [email or web address]
--- NOTE | 2019-11-15 14:07 | RADIOLOGY REPORT (SQ) ---
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 FLUOROSCOPY TIME: 1.2 minutes 5 images saved to PACS. TECHNIQUE: Intra-operative images acquired during surgical procedure to evaluate progress. NUMBER OF IMAGES: 5 LIMITATIONS: None. FINDINGS: Spinal needles overlie the soft tissues posterior to the lumbar spine . IMPRESSION: IMAGE(S) OBTAINED DURING PROCEDURE. COMMENT: Quality ID 145: Final reports for procedures using fluoroscopy that document radiation exp osure indices, or exposure time and number of fluorographic images (if radiation exposure indices are not available) Please consult full operative report of the attending physician for description of the procedure. TECHNICAL DOCUMENTATION: JOB ID: [id number] 2010 [employer]- All Rights Reserved Reading location - IP/workstation name: [email or web address]
--- NOTE | 2019-11-15 14:07 | RADIOLOGY REPORT (SQ) ---
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 FLUOROSCOPY TIME: 1.2 minutes 5 images saved to PACS. TECHNIQUE: Intra-operative images acquired during surgical procedure to evaluate progress. NUMBER OF IMAGES: 5 LIMITATIONS: None. FINDINGS: Spinal needles overlie the soft tissues posterior to the lumbar spine . IMPRESSION: IMAGE(S) OBTAINED DURING PROCEDURE. COMMENT: Quality ID 145: Final reports for procedures using fluoroscopy that document radiation exp osure indices, or exposure time and number of fluorographic images (if radiation exposure indices are not available) Please consult full operative report of the attending physician for description of the procedure. TECHNICAL DOCUMENTATION: JOB ID: [id number] 2010 [employer]- All Rights Reserved Reading location - IP/workstation name: [email or web address]
== END ==
LOC: RAD 10:17
PROVIDERS: ATTEND Pain Medicine Interventional Pain Medicine
DX: M47.816 Spondylosis without myelopathy or radiculopathy, lumbar region (principal)
CPT/HCPCS: 64636; 64635; J3490 ×2; J1885; J1030